=== PATIENT | male | born 2000 | race Caucasian/White ===

== ENCOUNTER 2022-12-04 21:08 | Inpatient (IN) ==
[2022-12-04 22:03] LABS: Basophils # (auto) 0.08 K/uL (0-0.2); Basophils % (auto) 1.1 %; Eosinophils # (auto) 0.16 K/uL (0-0.50); Eosinophils % (auto) 2.1 %; Hematocrit (blood only) 43.2 % (42.0-52.0); Hemoglobin 15.9 g/dl (14.0-18.0); Immature Granulocytes # (auto) 0.06 K/uL (0.01-0.20); Immature Granulocytes % (auto) 0.8 %; Lymphocytes # (auto) 1.75 K/uL (1.2-3.4); Lymphocytes % (auto) 23.5 %; Mean Corpuscular Hemoglobin 31.2 pg (25.0-34.0); Mean Corpuscular Hgb Conc 36.8 g/dL (32.0-36.0); Mean Corpuscular Volume 84.9 fL (80.0-100.0); Mean Platelet Volume 9.5 fL (9.4-12.4); Monocytes # (auto) 0.69 K/uL (0.11-0.59); Monocytes % (auto) 9.2 %; Neutrophils # (auto) 4.72 K/uL (1.40-6.50); Neutrophils % (auto) 63.3 %; Platelet Count 342 K/uL (130-400); RDW Coefficient of Variation 12.4 % (11.5-14.5); Red Blood Count 5.09 M/uL (4.70-6.10); White Blood Count 7.46 K/ul (4.8-10.8)
[2022-12-04 22:04] LABS: Appearance Urine Clear (Clear); Bilirubin Urine Negative (Negative); Blood Urine Negative (Negative); Color Urine Yellow; Glucose Urine UA Negative (Negative); Ketones Urine Negative (Negative); Leukocyte Esterase Urine Negative (Negative); Nitrite Urine Negative (Negative); Protein Urine Negative (Negative); Specific Gravity Urine 1.022 (1.000-1.030); Urobilinogen Urine Negative (Negative)
--- NOTE | 2022-12-04 22:10 | Emergency Department Note ---
History of Present Illness General Chief complaint: Mental Health Evaluation Stated complaint: LACERATION ON R ARM Time Seen by Provider: 12/04/22 21:50 Source: patient Mode of arrival: ambulatory Limitations: no limitations History of Present Illness This patient is a 22-year-old male who comes in after having suicidal thoughts. He has been seen at [facility] and called crisis a couple times over the last month he says. He said he just did not want to be alone in his apartment. He has been living by himself which has been stressful. He started cutting himself about a week ago and cut both arms. He has a larger laceration on the right proximal arm. His tetanus shot is up-to-date. He denies that he tried to hurt himself in any other way or took an overdose. He was started recently on Lexapro and was concerned about serotonin syndrome he is very restless. He says at school is not going well. he is not eating. he is not showering. Home Medications Medication Instructions Recorded Confirmed Type escitalopram oxalate 10 mg tablet 10 mg PO DAILY 12/04/22 12/04/22 History melatonin 3 mg tablet 0 mg PO HS PRN Sleep 12/04/22 12/04/22 History Allergies Allergy/AdvReac Type Severity Reaction Status Date / Time amoxicillin Allergy Intermediate Rash Verified 12/04/22 22:20 Past Med/Surg History Medical History Pilonidal cyst Social History Smoking Status: Never smoker Preferred Language: Hungarian Feels Safe at Home: Hesitant to Answer Gender Identity: Male Immunizations: Past medical historydiabetes. 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 He is from [place]. He does not smoke he drinks alcohol 2-3 drinks a night but has not had any alcohol for a week when he started Lexapro. He denies any history of withdrawing having seizures or shakiness after not drinking. Denies drug use or marijuana Review of Systems A total of 10 systems reviewed and were otherwise negative Physical Exam Vital Signs Vital Signs - 24 hr 12/04/22 21:14 12/04/22 21:09 Temperature 36.9 C Temperature Source Oral Pulse Rate 79 Respiratory Rate 16 Respiratory Effort / Characteristics Non-Labored Spontaneous Non-Labored Respiratory Depth Normal Normal Blood Pressure 132/86 Blood Pressure Mean 101 Blood Pressure Position Sitting Pulse Oximetry 97 Oxygen Delivery Method Room Air Sepsis Recent Fever Within 48 Hours No Sepsis New/Unexplained Change in Mental Status N/A Sepsis Action Taken by Nursing No Action Required General: Well developed well nourished young male who appears in no acute distress, breathing comfortably on room air. Normal speech HEENT: Normal cephalic atraumatic. Pupils are equal round and reactive to light. Sclera are anicteric extraocular movements are intact. Oropharynx is pink with moist mucous membranes. No swelling of the mouth lips or tongue. Neck: Supple with a midline trachea. No meningeal signs or stiffness, no JVD or bruits. No Stridor. Chest: Clear to auscultation bilaterally. No wheezes or rhonchi. No increased work of breathing. Heart: Regular rate and rhythm without murmurs or gallops. Abdomen: Soft nontender, nondistended without rebound guarding or rigidity. Extremities: No cyanosis clubbing or edema. No calf tenderness or assymetry Spine/Back. Non tender to palpation. No CVA tenderness Skin: Good turgor without rashes. He has multiple healing superficial cuts on his left arm they are mostly scars. In his right proximal arm he has a laceration which has a 4 mm gape but does not appear to be deep. No bleeding no damage to the underlying structures he is neurologically intact distally Neurologic exam: Cranial nerves two through 12 are intact. Motor and sensation are intact and symmetrical throughout. He has normal reflexes. he has no clonus. he has no tremor. he is not shaky Procedures Free Text Procedures Laceration repairplease refer to Cindy Winn PA-C note Course Administered Medications Discontinued Medications Lidocaine/Epinephrine (Lido/Epinephrine/Sod Bicarb 50 Ml Vial) 20 ml INFIL NOW ONE Stop: 12/04/22 23:24 Last Admin: 12/04/22 23:41 Dose: 20 ml Documented By: NEMO Medical Decision Making Differential Diagnosis Depression, suicidal ideations, anxiety, toxicologic, metabolic, laceration Medical Records Attestation: I reviewed the patient's medical records. Home Medications Current Medication List: was personally reviewed by me Laboratory Data Attestation: I reviewed the patient's lab results. 12/04/22 21:30 12/04/22 21:30 Lab Results 12/04/22 12/04/22 12/04/22 Range/Units 21:30 21:30 21:30 WBC 7.46 (4.8-10.8) K/ul RBC 5.09 (4.70-6.10) M/uL Hgb 15.9 (14.0-18.0) g/dl Hct 43.2 (42.0-52.0) % MCV 84.9 (80.0-100.0) fL MCH 31.2 (25.0-34.0) pg MCHC 36.8 H (32.0-36.0) g/dL RDW Std Deviation 38.0 (36.4-46.3) fL RDW Coeff of Rishi 12.4 (11.5-14.5) % Plt Count 342 (130-400) K/uL MPV 9.5 (9.4-12.4) fL Immature Gran % (Auto) 0.8 % Neut % (Auto) 63.3 % Lymph % (Auto) 23.5 % [place] % (Auto) 9.2 % Eos % (Auto) 2.1 % Baso % (Auto) 1.1 % Neut # (Auto) 4.72 (1.40-6.50) K/uL Lymph # (Auto) 1.75 (1.2-3.4) K/uL [place] # (Auto) 0.69 H (0.11-0.59) K/uL Eos # (Auto) 0.16 (0-0.50) K/uL Baso # (Auto) 0.08 (0-0.2) K/uL Immature Gran # (Auto) 0.06 (0.01-0.20) K/uL Sodium 139 (136-145) mmol/L Potassium 3.7 (3.5-5.1) mmol/L Chloride 104 (98-107) mmol/L Carbon Dioxide 25 (21-32) mmol/L Anion Gap 10 (3-11) BUN 17 (6-23) mg/dl Creatinine 0.97 (0.6-1.4) mg/dl Est Cr Clr Drug Dosing 123.7 ml/min Est GFR ( Amer) 127.9 ml/min Est GFR (Non-Af Amer) 110.4 ml/min BUN/Creatinine Ratio 17.5 (10-20) Glucose 92 (70-99(Fasting)) mg/dl Calcium 9.3 (8.6-10.3) mg/dl Total Bilirubin 0.8 (0.2-1.0) mg/dl AST 36 (13-39) U/L ALT 64 H (7-52) U/L Alkaline Phosphatase 62 (34-104) U/L Total Protein 7.6 (6.0-8.3) gm/dl Albumin 4.8 (3.4-5.0) gm/dl Globulin 2.8 (2.5-4.0) gm/dl Albumin/Globulin Ratio 1.7 (0.9-2) TSH 1.745 (0.300-4.500) uIu/ml Urine Color Urine Appearance (Clear) Urine pH (4.5-7.5) Ur Specific [place] (1.000-1.030) Urine Protein (Negative) Urine Glucose (UA) (Negative) Urine Ketones (Negative) Urine Blood (Negative) Urine Nitrite (Negative) Urine Bilirubin (Negative) Urine Urobilinogen (Negative) Ur Leukocyte Esterase (Negative) Salicylates (3.0-30) mg/dl Urine Opiates Screen (Neg) Ur Methadone, Qual (Neg) Acetaminophen (10-30) ug/ml Urine Barbiturates (Neg) Ur Phencyclidine (PCP) (Neg) U Amphetamin/Meth Scrn (Neg) MDMA (Ecstasy) Screen (Neg) U Benzodiazepines Scrn (Neg) Ur Cocaine Metabolite (Neg) U Marijuana (THC) Screen (Neg) Ethyl Alcohol mg/dL (<10.0) mg/dl SARS-CoV-2, RNA, NAAT (NEGATIVE) 12/04/22 12/04/22 12/04/22 Range/Units 21:30 21:30 21:45 WBC (4.8-10.8) K/ul RBC (4.70-6.10) M/uL Hgb (14.0-18.0) g/dl Hct (42.0-52.0) % MCV (80.0-100.0) fL MCH (25.0-34.0) pg MCHC (32.0-36.0) g/dL RDW Std Deviation (36.4-46.3) fL RDW Coeff of Rishi (11.5-14.5) % Plt Count (130-400) K/uL MPV (9.4-12.4) fL Immature Gran % (Auto) % Neut % (Auto) % Lymph % (Auto) % [place] % (Auto) % Eos % (Auto) % Baso % (Auto) % Neut # (Auto) (1.40-6.50) K/uL Lymph # (Auto) (1.2-3.4) K/uL [place] # (Auto) (0.11-0.59) K/uL Eos # (Auto) (0-0.50) K/uL Baso # (Auto) (0-0.2) K/uL Immature Gran # (Auto) (0.01-0.20) K/uL Sodium (136-145) mmol/L Potassium (3.5-5.1) mmol/L Chloride (98-107) mmol/L Carbon Dioxide (21-32) mmol/L Anion Gap (3-11) BUN (6-23) mg/dl Creatinine (0.6-1.4) mg/dl Est Cr Clr Drug Dosing ml/min Est GFR ( Amer) ml/min Est GFR (Non-Af Amer) ml/min BUN/Creatinine Ratio (10-20) Glucose (70-99(Fasting)) mg/dl Calcium (8.6-10.3) mg/dl Total Bilirubin (0.2-1.0) mg/dl AST (13-39) U/L ALT (7-52) U/L Alkaline Phosphatase (34-104) U/L Total Protein (6.0-8.3) gm/dl Albumin (3.4-5.0) gm/dl Globulin (2.5-4.0) gm/dl Albumin/Globulin Ratio (0.9-2) TSH (0.300-4.500) uIu/ml Urine Color Urine Appearance (Clear) Urine pH (4.5-7.5) Ur Specific [place] (1.000-1.030) Urine Protein (Negative) Urine Glucose (UA) (Negative) Urine Ketones (Negative) Urine Blood (Negative) Urine Nitrite (Negative) Urine Bilirubin (Negative) Urine Urobilinogen (Negative) Ur Leukocyte Esterase (Negative) Salicylates < 3.0 L (3.0-30) mg/dl Urine Opiates Screen (Neg) Ur Methadone, Qual (Neg) Acetaminophen < 3 L (10-30) ug/ml Urine Barbiturates (Neg) Ur Phencyclidine (PCP) (Neg) U Amphetamin/Meth Scrn (Neg) MDMA (Ecstasy) Screen (Neg) U Benzodiazepines Scrn (Neg) Ur Cocaine Metabolite (Neg) U Marijuana (THC) Screen (Neg) Ethyl Alcohol mg/dL < 10.0 (<10.0) mg/dl SARS-CoV-2, RNA, NAAT NEGATIVE (NEGATIVE) 12/04/22 12/04/22 Range/Units Unknown Unknown WBC (4.8-10.8) K/ul RBC (4.70-6.10) M/uL Hgb (14.0-18.0) g/dl Hct (42.0-52.0) % MCV (80.0-100.0) fL MCH (25.0-34.0) pg MCHC (32.0-36.0) g/dL RDW Std Deviation (36.4-46.3) fL RDW Coeff of Rishi (11.5-14.5) % Plt Count (130-400) K/uL MPV (9.4-12.4) fL Immature Gran % (Auto) % Neut % (Auto) % Lymph % (Auto) % [place] % (Auto) % Eos % (Auto) % Baso % (Auto) % Neut # (Auto) (1.40-6.50) K/uL Lymph # (Auto) (1.2-3.4) K/uL [place] # (Auto) (0.11-0.59) K/uL Eos # (Auto) (0-0.50) K/uL Baso # (Auto) (0-0.2) K/uL Immature Gran # (Auto) (0.01-0.20) K/uL Sodium (136-145) mmol/L Potassium (3.5-5.1) mmol/L Chloride (98-107) mmol/L Carbon Dioxide (21-32) mmol/L Anion Gap (3-11) BUN (6-23) mg/dl Creatinine (0.6-1.4) mg/dl Est Cr Clr Drug Dosing ml/min Est GFR ( Amer) ml/min Est GFR (Non-Af Amer) ml/min BUN/Creatinine Ratio (10-20) Glucose (70-99(Fasting)) mg/dl Calcium (8.6-10.3) mg/dl Total Bilirubin (0.2-1.0) mg/dl AST (13-39) U/L ALT (7-52) U/L Alkaline Phosphatase (34-104) U/L Total Protein (6.0-8.3) gm/dl Albumin (3.4-5.0) gm/dl Globulin (2.5-4.0) gm/dl Albumin/Globulin Ratio (0.9-2) TSH (0.300-4.500) uIu/ml Urine Color Yellow Urine Appearance Clear (Clear) Urine pH 7.0 (4.5-7.5) Ur Specific [place] 1.022 (1.000-1.030) Urine Protein Negative (Negative) Urine Glucose (UA) Negative (Negative) Urine Ketones Negative (Negative) Urine Blood Negative (Negative) Urine Nitrite Negative (Negative) Urine Bilirubin Negative (Negative) Urine Urobilinogen Negative (Negative) Ur Leukocyte Esterase Negative (Negative) Salicylates (3.0-30) mg/dl Urine Opiates Screen Neg (Neg) Ur Methadone, Qual Neg (Neg) Acetaminophen (10-30) ug/ml Urine Barbiturates Neg (Neg) Ur Phencyclidine (PCP) Neg (Neg) U Amphetamin/Meth Scrn Neg (Neg) MDMA (Ecstasy) Screen Neg (Neg) U Benzodiazepines Scrn Neg (Neg) Ur Cocaine Metabolite Neg (Neg) U Marijuana (THC) Screen Neg (Neg) Ethyl Alcohol mg/dL (<10.0) mg/dl SARS-CoV-2, RNA, NAAT (NEGATIVE) MDM Narrative This patient comes in as described above he has a self-inflicted laceration to his right arm. He had suicidal ideations. He tells me he did have razor blades next to a bathtub but he stopped and did not try to hurt himself otherwise. He has been more depressed lately. Multiple testing was obtained for medical clearance. His tetanus shot is up-to-date. He has no fever white count to suggest infection. He has no significant electrolyte or metabolic abnormality. His labs were unremarkable and he was medically cleared. Is nothing to suggest toxicologic metabolic or infectious etiology for his symptoms. His COVID test was negative. I did talk to him about his laceration. I did have my PA and he [place] look at it for possible closure from a cosmetic aspect. The patient was about further evaluated by our psychiatric case aide who I talked to at length and discussion about this patient. [facility]. is going to evaluate the patient for possible admission. They did evaluate him and again made him voluntarily Impression & Plan Depression, Suicidal ideation, Laceration, Up to date with diphtheria-tetanus vaccination, Lab test negative for COVID-19 virus Discharge Plan Visit Data Chief Complaint: Mental Health Evaluation Stated Complaint: LACERATION ON R ARM ED Provider: Christopher Santos Discharge Problem: Depression, Suicidal ideation, Laceration, Up to date with diphtheria-tetanus vaccination, Lab test negative for COVID-19 virus Forms Stand Alone Forms: My [facility], Suicide Prevention Resources Prescriptions Prescriptions: No Action melatonin 3 mg Tablet 0 mg PO HS PRN (Reason: Sleep) Rx Instructions: PT UNSURE OF STRENGTH escitalopram oxalate 10 mg tablet 10 mg PO DAILY Referrals Referrals: PCP,NO [Physician] - Depression Qualifiers: Depression Type: unspecified Qualified Code(s): F32.A - Depression, unspecified
[2022-12-04 22:21] LABS: Albumin Globulin Ratio 1.7 (0.9-2); Albumin Level 4.8 gm/dl (3.4-5.0); BUN Creatinine Ratio 17.5 (10-20); Bilirubin,Total 0.8 mg/dl (0.2-1.0); Calcium 9.3 mg/dl (8.6-10.3); Creatinine Clr Calc Pharmacy 123.7 ml/min; Est GFR (African American) 127.9 ml/min; Est GFR (Non-African American) 110.4 ml/min; Globulin 2.8 gm/dl (2.5-4.0); Potassium 3.7 mmol/L (3.5-5.1); Total Protein 7.6 gm/dl (6.0-8.3)
[2022-12-04 22:32] LABS: Acetaminophen < 3 ug/ml (10-30); Salicylate < 3.0 mg/dl (3.0-30)
[2022-12-04 22:45] LABS: Amphetamines+Metham, Urine Neg (Neg); Barbiturates, Urine Neg (Neg); Benzodiazepine, Urine Neg (Neg); Cocaine, Urine Neg (Neg); MDMA (Ecstacy), Urine Neg (Neg); Methadone, Urine Neg (Neg); Opiate, Urine Neg (Neg); Phencyclidine, Urine Neg (Neg)
[2022-12-04] MEDS ORDERED: LIDO/EPINEPHRINE/SOD BICARB 50 ML VIAL INFIL ONE (23:23)
--- NOTE | 2022-12-04 23:25 | Emergency Department Note ---
ED Visit Note EMERGENCY DEPARTMENT PROCEDURE NOTE: I was asked by Dr. Santos to repair the right upper arm wound of this 22 year old male patient. Please refer to their dictation for the complete history, physical exam, and ED course. The patient has a 6 cm self-inflicted partial- thickness laceration of the left upper deltoid region. EMERGENCY DEPARTMENT COURSE: The wound was prepped with Betadine and draped with sterile towels. The wound was anesthetized with 1% buffered lidocaine with epinephrine. The 6 cm laceration was irrigated copiously using normal saline solution and direct pressure irrigation. The wound was repaired using a combination of simple and [id number] [id number] nylon sutures. A total of 5 sutures were placed. Bacitracin and a light dressing were applied. Patient tolerated the procedure well.
[2022-12-05] MEDS ORDERED: hydrOXYzine HCl 25 MG TAB PO PRN ×2 (02:34)
[2022-12-05] MEDS ORDERED: ACETAMINOPHEN 325 MG TAB PO PRN (02:34)
[2022-12-05] MEDS ORDERED: BISMUTH SUBSALICYLATE LIQD 236 ML PO PRN (02:34)
[2022-12-05] MEDS ORDERED: MAGNESIUM HYDROXIDE SUSP 30 ML UDC PO PRN (02:34)
[2022-12-05] MEDS ORDERED: ALUMINUM/MAGNESIUM SUSP 30 ML UDC PO PRN (02:34)
[2022-12-05] MEDS ORDERED: SODIUM CHLORIDE 0.65% NA SOLN 45 ML (OCEAN) PRN (02:34)
[2022-12-05] MEDS ORDERED: MELATONIN 3 MG TAB PO PRN (07:55)
[2022-12-05] MEDS ORDERED: NICOTINE POLACRILEX 2 MG GUM MT PRN (10:35)
--- NOTE | 2022-12-05 14:18 | History & Physical ---
Date of Service December 05, 2022 Impression / Recommendations Impression 22 yo male with no formal psych history presents with 3 month history of worsening depressive symptoms with escalation in SI and cutting since starting Lexapro 5 mg. (1) Depression: Depression Type: unspecified Qualified Code(s): F32.A - Depression, unspecified (2) Laceration: Plan The patient was admitted to the [facility] ([facility] mental [facility] unit) on q15 min checks (behavioral with suicide precautions) for safety. The patient will participate in group, recreational, and milieu therapies and will be offered additional individual and family sessions as clinically appropriate. d/c Lexapro. Risks/benefits/alternatives reviewed re: antidepressants for the treatment of depression, discussion included but was not limited to FDA warnings re: suicidality in adolescents and young adults. Will discuss options in more detail as subjective restlessness resolves. Inventory Assets Strengths: functions independently at baseline, will have family support for summer, works remotely Needs: improve coping, improve insight Suicide Risk Level Suicide Risk Level: High-Moderate (q15 min suicide checks) Risk Factors Assessment Male: Yes : Yes Do You Have Access To A Gun?: No (neither here nor home) Previous Attempt: No Previous Psychiatric Hospitalization: No Protective Factors Assessment Employed: Yes Supportive Family: Yes (brother) Psychiatric History Identifying Data CRISTINA BLAIR is a 22-year-old , [employer] student and was admitted on 12/05/22 00:14 on a 201 voluntary commitment for SI with self-inflicted laceration. Chief Complaint "Lexapro made me restless." History of Present Illness Patient reports onset of depressive symptoms in August. He stopped going to class and responding to texts from other people. He couldn't concentrate as well and lost motivation. He "waited too long I guess" to seek treatment as now in danger of failing some classes in [employer]. He lives alone so there is no one around to encourage him to go out or care for self but was quick to add that that does not imply that he doesn't have friends. He was started on Lexapro 5 mg 1 week ago and has felt generally worse--tapping his leg/foot up and down, not sleeping or eating as well. Although he had made some superficial cuts last week, yesterday he cut his right arm requiring 5 sutures (removal in 2 weeks). He does plan to go to the [facility] for the summer but is ambivalent about sharing the news of his hospitalization with his parents as doesn't want them to feel responsible but "I also want to stop lying." By lying he means referring to his mood as good when it is not. Past Psychiatric History Current Psychiatric Diagnosis: MDD Outpatient Services: [place] Previous Psych Admissions: none Do You Have Access To A Gun?: No (neither here nor home) History of Previous Suicide Attempt: No Past Medication Trials: none Allergies Allergy/AdvReac Type Severity Reaction Status Date / Time amoxicillin Allergy Intermediate Rash Verified 12/04/22 22:20 Home Medications Medication Instructions Recorded Confirmed Type escitalopram oxalate 10 mg tablet 10 mg PO DAILY 12/04/22 12/04/22 History melatonin 3 mg tablet 0 mg PO HS PRN Sleep 12/04/22 12/04/22 History Family History Family History of: Doesn't Know Family Mental Health History Comment: Paternal Grandfather - alcoholism Alcohol History Hx of Alcohol Use Over the Past 12 Months: Yes (until a week ago, a couple of beers a night) AUDIT Total Score: 3 Smoking Use Have You Smoked or Used Tobacco Products in the Last 30 Days: Yes tobacco type: e-cigarettes Substance History Hx of Prescription Med Misuse Over the Past 12 Months: No Hx of Over the Counter Med Misuse Over the Past 12 Months: No Hx of Inhalent Misuse Over the Past 12 Months: No Hx of Organic Substance Use Over the Past 12 Months: No Hx of Illegal Substances/Street Drug Use Over Past 12 Months: No Problems as a Result of Past Substance Use: None Identified Personal History Living Arrangements: Apartment Living Arrangements Comments: Will be returning to [place] after finals Highest Grade Completed: College Highest Grade Completed Comment: [employer] majoring in [employer] science, states that he is not doing well throughout the whole semester and is unsure of what he plans to do in regard to classes Marital Status: Single Number Of Children: 0 Beliefs That Will Affect Care: None Current Legal Problems: No Hx Traumatic Life Events: No Patient History Medical History Pilonidal cyst Social History Preferred Language: Slovak Communication Ability: Effective Classified Copy Control Clerk Required: No Beliefs That Will Affect Care: None Feels Safe at Home: Yes and Hesitant to Answer Gender Identity: Male Assistive Devices: Glasses Review of Systems Review of Systems: All systems reviewed & are unremarkable except as noted in HPI & below Physical Exam Psychiatric: Orientation: alert and oriented x 3 Apperance: appropriately dressed and appropriately groomed Eye Contact: good eye contact Motor Behavior: no abnormal motor movements Speech: normal rate/rhythm/volume of speech Affect: + depressed affect Mood: + depressed mood Thought Process: + concrete thought process Thought Content: reality based without delusions Suicidal Thoughts: denies suicidal intent (on unit); + reports suicidal thoughts and + reports suicidal plan Homicidal Thoughts: denies homicidal thoughts Hallucinations: no auditory hallucinations and no visual hallucinations Cognition: attention grossly intact and language grossly intact Estimated Intelligence: consistent with education level Insight: + limited insight Judgment: + limited judgement Vital Signs (Past 24 Hours): Last Vital Signs Temp 36.6 C 12/05/22 06:00 Pulse 76 12/05/22 06:42 Resp 16 12/05/22 06:00 BP 129/82 12/05/22 06:42 Pulse Ox 99 12/05/22 01:41 O2 Del Method Room Air 12/05/22 01:41 Exam Statement: A physical exam was performed in the ED by Dr. Santos for the purposes of medical clearance. I accept that physical as correct and adequate for the purposes of the inpatient physical exam. Results & Data ([facility]) Laboratory Results Laboratory Results - last 24 hr 12/04/22 12/04/22 12/04/22 21:30 21:30 21:30 WBC 7.46 RBC 5.09 Hgb 15.9 Hct 43.2 MCV 84.9 MCH 31.2 MCHC 36.8 H RDW Std Deviation 38.0 RDW Coeff of Rishi 12.4 Plt Count 342 MPV 9.5 Immature Gran % (Auto) 0.8 Neut % (Auto) 63.3 Lymph % (Auto) 23.5 [place] % (Auto) 9.2 Eos % (Auto) 2.1 Baso % (Auto) 1.1 Neut # (Auto) 4.72 Lymph # (Auto) 1.75 [place] # (Auto) 0.69 H Eos # (Auto) 0.16 Baso # (Auto) 0.08 Immature Gran # (Auto) 0.06 Sodium 139 Potassium 3.7 Chloride 104 Carbon Dioxide 25 Anion Gap 10 BUN 17 Creatinine 0.97 Est Cr Clr Drug Dosing 123.7 Est GFR ( Amer) 127.9 Est GFR (Non-Af Amer) 110.4 BUN/Creatinine Ratio 17.5 Glucose 92 Calcium 9.3 Total Bilirubin 0.8 AST 36 ALT 64 H Alkaline Phosphatase 62 Total Protein 7.6 Albumin 4.8 Globulin 2.8 Albumin/Globulin Ratio 1.7 TSH 1.745 Urine Color Urine Appearance Urine pH Ur Specific [place] Urine Protein Urine Glucose (UA) Urine Ketones Urine Blood Urine Nitrite Urine Bilirubin Urine Urobilinogen Ur Leukocyte Esterase Salicylates Urine Opiates Screen Ur Methadone, Qual Acetaminophen Urine Barbiturates Ur Phencyclidine (PCP) U Amphetamin/Meth Scrn MDMA (Ecstasy) Screen U Benzodiazepines Scrn Ur Cocaine Metabolite U Marijuana (THC) Screen Ethyl Alcohol mg/dL SARS-CoV-2, RNA, NAAT 12/04/22 12/04/22 12/04/22 21:30 21:30 21:45 WBC RBC Hgb Hct MCV MCH MCHC RDW Std Deviation RDW Coeff of Rishi Plt Count MPV Immature Gran % (Auto) Neut % (Auto) Lymph % (Auto) [place] % (Auto) Eos % (Auto) Baso % (Auto) Neut # (Auto) Lymph # (Auto) [place] # (Auto) Eos # (Auto) Baso # (Auto) Immature Gran # (Auto) Sodium Potassium Chloride Carbon Dioxide Anion Gap BUN Creatinine Est Cr Clr Drug Dosing Est GFR ( Amer) Est GFR (Non-Af Amer) BUN/Creatinine Ratio Glucose Calcium Total Bilirubin AST ALT Alkaline Phosphatase Total Protein Albumin Globulin Albumin/Globulin Ratio TSH Urine Color Urine Appearance Urine pH Ur Specific [place] Urine Protein Urine Glucose (UA) Urine Ketones Urine Blood Urine Nitrite Urine Bilirubin Urine Urobilinogen Ur Leukocyte Esterase Salicylates < 3.0 L Urine Opiates Screen Ur Methadone, Qual Acetaminophen < 3 L Urine Barbiturates Ur Phencyclidine (PCP) U Amphetamin/Meth Scrn MDMA (Ecstasy) Screen U Benzodiazepines Scrn Ur Cocaine Metabolite U Marijuana (THC) Screen Ethyl Alcohol mg/dL < 10.0 SARS-CoV-2, RNA, NAAT NEGATIVE 12/04/22 12/04/22 Unknown Unknown WBC RBC Hgb Hct MCV MCH MCHC RDW Std Deviation RDW Coeff of Rishi Plt Count MPV Immature Gran % (Auto) Neut % (Auto) Lymph % (Auto) [place] % (Auto) Eos % (Auto) Baso % (Auto) Neut # (Auto) Lymph # (Auto) [place] # (Auto) Eos # (Auto) Baso # (Auto) Immature Gran # (Auto) Sodium Potassium Chloride Carbon Dioxide Anion Gap BUN Creatinine Est Cr Clr Drug Dosing Est GFR ( Amer) Est GFR (Non-Af Amer) BUN/Creatinine Ratio Glucose Calcium Total Bilirubin AST ALT Alkaline Phosphatase Total Protein Albumin Globulin Albumin/Globulin Ratio TSH Urine Color Yellow Urine Appearance Clear Urine pH 7.0 Ur Specific [place] 1.022 Urine Protein Negative Urine Glucose (UA) Negative Urine Ketones Negative Urine Blood Negative Urine Nitrite Negative Urine Bilirubin Negative Urine Urobilinogen Negative Ur Leukocyte Esterase Negative Salicylates Urine Opiates Screen Neg Ur Methadone, Qual Neg Acetaminophen Urine Barbiturates Neg Ur Phencyclidine (PCP) Neg U Amphetamin/Meth Scrn Neg MDMA (Ecstasy) Screen Neg U Benzodiazepines Scrn Neg Ur Cocaine Metabolite Neg U Marijuana (THC) Screen Neg Ethyl Alcohol mg/dL SARS-CoV-2, RNA, NAAT Current Inpatient Medications Current Inpatient Medications: Current Inpatient Medications Acetaminophen (Acetaminophen 325 Mg Tab) 650 mg PO Q4H PRN PRN Reason: Headache or Minor Fever Stop: 01/04/23 02:33 Al Hydrox/Mg Hydrox/Simethicone (Aluminum/Magnesium Susp 30 Ml Udc) 30 ml PO Q4H PRN PRN Reason: GI Upset Stop: 01/04/23 02:33 Bismuth Subsalicylate (Bismuth Subsalicylate Liqd 236 Ml) 15 ml PO PRN PRN PRN Reason: Loose Stool Stop: 01/04/23 02:33 Hydroxyzine HCl (Hydroxyzine Hcl 25 Mg Tab) 50 mg PO HSZ PRN PRN Reason: Insomnia Stop: 01/04/23 02:33 Hydroxyzine HCl (Hydroxyzine Hcl 25 Mg Tab) 25 mg PO Q4H PRN PRN Reason: Anxiety Stop: 01/04/23 02:33 Magnesium Hydroxide (Magnesium Hydroxide Susp 30 Ml Udc) 30 ml PO DAILY PRN PRN Reason: Constipation Stop: 01/04/23 02:33 Melatonin (Melatonin 3 Mg Tab) 3 mg PO HS PRN PRN Reason: Sleep Stop: 01/04/23 07:54 Nicotine Polacrilex (Nicotine Polacrilex 2 Mg Gum) 1 piece MT PRN PRN PRN Reason: Undecided Stop: 01/04/23 10:34 Sodium Chloride (Sodium Chloride 0.65% Na Soln 45 Ml ([place])) 1 - 2 sprays NA PRN PRN PRN Reason: Nasal Dryness/Congestion Stop: 01/04/23 02:33
--- NOTE | 2022-12-06 08:47 | Psychiatric Progress Note ---
Date of Service December 06, 2022 Impression / Recommendations Impression 22 yo male with no formal psych history presents with 3 month history of worsening depressive symptoms with escalation in SI and cutting since starting Lexapro 5 mg. Diagnostically seems most consistent with major depressive episode. He is deemed to need psychiatric hospitalization for diagnostic clarification, safety and stabilization, medication management and development of further coping skills. 12/06/2022: Difficulty sleeping and feeling of depersonalization, unclear if this is due to major depressive versus trauma-based or otherwise driven. Given poor response to recent low dose SSRI trial will start trazodone to begin with focus on improving sleep. Discussed medication treatment options in detail. Discussed risks, benefits and alternatives. Patient would like to start and consented to trazodone for insomnia/depression.Reviewed side effects including but not limited to: sedation, priapism, increased appetite, and counseled on black box warning of potential for emergence of or increased SI and need to let staff know should this occur or should they feel unsafe. Also discussed importance of seeking emergency care following discharge if this side effect occurs in the future. (1) Depression: (2) Laceration: Plan 12/06/2022: Start trazodone 50mg HS 12/05/2022: The patient was admitted to the [facility] ([facility] mental health unit) on q15 min checks (behavioral with suicide precautions) for safety. The patient will participate in group, recreational, and milieu therapies and will be offered additional individual and family sessions as clinically appropriate. d/c Lexapro. Risks/benefits/alternatives reviewed re: antidepressants for the treatment of depression, discussion included but was not limited to FDA warnings re: suicidality in adolescents and young adults. Will discuss options in more detail as subjective restlessness resolves. Inventory Assets Strengths: functions independently at baseline, will have family support for summer, works remotely Needs: improve coping, improve insight Suicide Risk Level Suicide Risk Level: High-Moderate (q15 min suicide checks) (SI and cutting prior to admission with ongoing severe depression and intermittent SI but feels safe in the hospital and feels comfortable letting nurses know if he feels unable to remain safe or requires additional support) Risk Factors Assessment Male: Yes : Yes Do You Have Access To A Gun?: No (neither here nor home) Previous Attempt: No Previous Psychiatric Hospitalization: No Protective Factors Assessment Employed: Yes Supportive Family: Yes (brother) Interval History Identifying Information CRISTINA BLAIR is a 22-year-old M, [employer] student and was admitted on 12/05/22 00:14 on a 201 voluntary commitment for SI with self-inflicted laceration. Chief Complaint "Better than yesterday but not the best". Review of Systems Sleep Information Total Hours of Sleep: 6.5 Sleep Comments: Meal Information Percent Meal Consumed - Breakfast: 100 Percent Meal Consumed - Lunch: 95 Percent Meal Consumed - Dinner: 100 Subjective Subjective Patient was seen & assessed and interval progress reviewed with treatment team nursing and social work. Attending groups but withdrawn and flat. States poor sleep with multiple awakenings. Experiences sense of "depersonalization" especially during nighttime awakenings which is very bothersome to him. cannot describe sense further but agrees it feels like being disconnected with his body. Denies SI but notes it is early in the day so hard for him to tell so far. Would like to try a medication to help with sleep. Physical Exam Psychiatric Orientation: alert and oriented x 3 Apperance: appropriately dressed and appropriately groomed Eye Contact: good eye contact Motor Behavior: no abnormal motor movements Speech: normal rate/rhythm/volume of speech Affect: + depressed affect and + constricted affect Mood: + depressed mood Thought Process: + concrete thought process Thought Content: reality based without delusions Suicidal Thoughts: denies suicidal plan and denies suicidal intent; + reports suicidal thoughts (intermittent, none so far today) Homicidal Thoughts: denies homicidal thoughts Hallucinations: no auditory hallucinations and no visual hallucinations Cognition: attention grossly intact and language grossly intact Estimated Intelligence: consistent with education level Insight: + limited insight Judgment: + limited judgement Vital Signs (Past 24 Hours) Last Vital Signs Temp 37.0 C 12/06/22 06:00 Pulse 73 12/06/22 06:00 Resp 18 12/06/22 06:00 BP 126/78 12/06/22 06:37 Pulse Ox 97 12/06/22 06:00 O2 Del Method Room Air 12/06/22 06:00 Results & Data ([facility]) Current Inpatient Medications Current Inpatient Medications: Current Inpatient Medications Acetaminophen (Acetaminophen 325 Mg Tab) 650 mg PO Q4H PRN PRN Reason: Headache or Minor Fever Stop: 01/04/23 02:33 Al Hydrox/Mg Hydrox/Simethicone (Aluminum/Magnesium Susp 30 Ml Udc) 30 ml PO Q4H PRN PRN Reason: GI Upset Stop: 01/04/23 02:33 Bismuth Subsalicylate (Bismuth Subsalicylate Liqd 236 Ml) 15 ml PO PRN PRN PRN Reason: Loose Stool Stop: 01/04/23 02:33 Hydroxyzine HCl (Hydroxyzine Hcl 25 Mg Tab) 50 mg PO HSZ PRN PRN Reason: Insomnia Stop: 01/04/23 02:33 Hydroxyzine HCl (Hydroxyzine Hcl 25 Mg Tab) 25 mg PO Q4H PRN PRN Reason: Anxiety Stop: 01/04/23 02:33 Magnesium Hydroxide (Magnesium Hydroxide Susp 30 Ml Udc) 30 ml PO DAILY PRN PRN Reason: Constipation Stop: 01/04/23 02:33 Melatonin (Melatonin 3 Mg Tab) 3 mg PO HS PRN PRN Reason: Sleep Stop: 01/04/23 07:54 Nicotine Polacrilex (Nicotine Polacrilex 2 Mg Gum) 1 piece MT PRN PRN PRN Reason: Undecided Stop: 01/04/23 10:34 Sodium Chloride (Sodium Chloride 0.65% Na Soln 45 Ml ([place])) 1 - 2 sprays NA PRN PRN PRN Reason: Nasal Dryness/Congestion Stop: 01/04/23 02:33 Mental Health & Subst Abuse Tx Therapist Name of Therapist: [place] intake next week Date of Therapist Appointment: na Post Adoption Coordinator Name of Post Adoption Coordinator: NA Post Discharge Appointments Primary Care Physician Name Of Family Doctor/PCP: CLAUDE (1) Depression Depression Type: unspecified Qualified Code(s): F32.A - Depression, unspecified
[2022-12-06] MEDS: traZODone HCL 50 MG TAB PO SCH (20:46)
--- NOTE | 2022-12-07 09:57 | Psychiatric Progress Note ---
Date of Service December 07, 2022 Impression / Recommendations Impression 22 yo male with no formal psych history presents with 3 month history of worsening depressive symptoms with escalation in SI and cutting since starting Lexapro 5 mg. Diagnostically seems most consistent with major depressive episode. He is deemed to need psychiatric hospitalization for diagnostic clarification, safety and stabilization, medication management and development of further coping skills. 12/07/2022: Ongoing depression but less depersonalization with improved sleep last night. Tolerating trazodone well so far but will monitor daytime grogginess. He declines additional antidepressant at this time. (1) Depression: (2) Laceration: Plan 12/07/2022: Continue current medication and tx plan. 12/06/2022: Start trazodone 50mg HS 12/05/2022: The patient was admitted to the [facility] ([facility] health unit) on q15 min checks (behavioral with suicide precautions) for safety. The patient will participate in group, recreational, and milieu therapies and will be offered additional individual and family sessions as clinically appropriate. d/c Lexapro. Risks/benefits/alternatives reviewed re: antidepressants for the treatment of depression, discussion included but was not limited to FDA warnings re: suicidality in adolescents and young adults. Will discuss options in more detail as subjective restlessness resolves. Inventory Assets Strengths: functions independently at baseline, will have family support for summer, works remotely Needs: improve coping, improve insight Suicide Risk Level Suicide Risk Level: High-Moderate (q15 min suicide checks) (SI and cutting prior to admission with ongoing severe depression and intermittent SI but feels safe in the hospital and feels comfortable letting nurses know if he feels unable to remain safe or requires additional support) Risk Factors Assessment Male: Yes : Yes Do You Have Access To A Gun?: No (neither here nor home) Previous Attempt: No Previous Psychiatric Hospitalization: No Protective Factors Assessment Employed: Yes Supportive Family: Yes (brother) Interval History Identifying Information CRISTINA BLAIR is a 22-year-old , [employer] student and was admitted on 12/05/22 00:14 on a 201 voluntary commitment for SI with self-inflicted laceration. Chief Complaint "I'm a little groggy". Review of Systems Sleep Information Total Hours of Sleep: 8.5 Meal Information Percent Meal Consumed - Breakfast: 100 Percent Meal Consumed - Lunch: 100 Percent Meal Consumed - Dinner: 100 Subjective Subjective Patient was seen & assessed and interval progress reviewed with treatment team nursing and social work. Attending groups. Attending to self-care via showering. Slept better last night with trazodone but with some grogginess this morning. he wants to continue with current dose. Denies SI today. Prefers to see how therapy and trazodone go before starting an additional SSRI or antidepressant medication given poor response to lexapro which he feels lead to restlessness and worsening of concentration. Physical Exam Psychiatric Orientation: alert and oriented x 3 Apperance: appropriately dressed and appropriately groomed Eye Contact: good eye contact Motor Behavior: no abnormal motor movements Speech: normal rate/rhythm/volume of speech Affect: + constricted affect Mood: + depressed mood Thought Process: + concrete thought process Thought Content: reality based without delusions Suicidal Thoughts: denies suicidal thoughts, denies suicidal plan and denies suicidal intent Homicidal Thoughts: denies homicidal thoughts Hallucinations: no auditory hallucinations and no visual hallucinations Cognition: attention grossly intact and language grossly intact Estimated Intelligence: consistent with education level Insight: + limited insight Judgment: + limited judgement Vital Signs (Past 24 Hours) Last Vital Signs Temp 36.5 C 12/07/22 06:00 Pulse 82 12/07/22 06:00 Resp 18 12/07/22 06:00 BP 102/65 12/07/22 06:43 Pulse Ox 99 12/07/22 06:00 O2 Del Method Room Air 12/07/22 06:00 Results & Data ([facility]) Current Inpatient Medications Current Inpatient Medications: Current Inpatient Medications Acetaminophen (Acetaminophen 325 Mg Tab) 650 mg PO Q4H PRN PRN Reason: Headache or Minor Fever Stop: 01/04/23 02:33 Al Hydrox/Mg Hydrox/Simethicone (Aluminum/Magnesium Susp 30 Ml Udc) 30 ml PO Q4H PRN PRN Reason: GI Upset Stop: 01/04/23 02:33 Bismuth Subsalicylate (Bismuth Subsalicylate Liqd 236 Ml) 15 ml PO PRN PRN PRN Reason: Loose Stool Stop: 01/04/23 02:33 Hydroxyzine HCl (Hydroxyzine Hcl 25 Mg Tab) 50 mg PO HSZ PRN PRN Reason: Insomnia Stop: 01/04/23 02:33 Hydroxyzine HCl (Hydroxyzine Hcl 25 Mg Tab) 25 mg PO Q4H PRN PRN Reason: Anxiety Stop: 01/04/23 02:33 Magnesium Hydroxide (Magnesium Hydroxide Susp 30 Ml Udc) 30 ml PO DAILY PRN PRN Reason: Constipation Stop: 01/04/23 02:33 Melatonin (Melatonin 3 Mg Tab) 3 mg PO HS PRN PRN Reason: Sleep Stop: 01/04/23 07:54 Nicotine Polacrilex (Nicotine Polacrilex 2 Mg Gum) 1 piece MT PRN PRN PRN Reason: Undecided Stop: 01/04/23 10:34 Sodium Chloride (Sodium Chloride 0.65% Na Soln 45 Ml ([place])) 1 - 2 sprays NA PRN PRN PRN Reason: Nasal Dryness/Congestion Stop: 01/04/23 02:33 Trazodone HCl (Trazodone Hcl 50 Mg Tab) 50 mg PO HS NAI Stop: 01/05/23 21:59 Last Admin: 12/06/22 20:46 Dose: 50 mg Mental Health & Subst Abuse Tx Therapist Name of Therapist: [place] intake next week Date of Therapist Appointment: na Printed Circuit Board Drafter Name of Printed Circuit Board Drafter: NA Post Discharge Appointments Primary Care Physician Name Of Family Doctor/PCP: CLAUDE (1) Depression Depression Type: unspecified Qualified Code(s): F32.A - Depression, unspecified
[2022-12-07] MEDS: traZODone HCL 50 MG TAB PO SCH (21:18)
--- NOTE | 2022-12-08 08:54 | Psychiatric Progress Note ---
Date of Service December 08, 2022 Impression / Recommendations Impression 22 yo male with no formal psych history presents with 3 month history of worsening depressive symptoms with escalation in SI and cutting since starting Lexapro 5 mg. Diagnostically seems most consistent with major depressive episode. He is deemed to need psychiatric hospitalization for diagnostic clarification, safety and stabilization, medication management and development of further coping skills. 12/08/2022: Ongoing depression, though this is improving as sleep does but with ongoing anxiety and very limited insight into factors leading to significant self-harm and potential benefits of involving more of his supports. Willing to consider family meeting later in the week. Tolerating trazodone better today without excessive grogginess. Explored additional medication options such as Wellbutrin versus alternative SSRI, he prefers to see how therapy works before adding any additional medications which is reasonable. (1) Depression: (2) Laceration: Plan 12/08/2022: Continue current medication and tx plan. Motivational interviewing and insight-oriented approach regarding factors leading to hospital, ways to make behavioral changes moving forward. 12/07/2022: Continue current medication and tx plan. 12/06/2022: Start trazodone 50mg HS 12/05/2022: The patient was admitted to the [facility] ([facility] mental health unit) on q15 min checks (behavioral with suicide precautions) for safety. The patient will participate in group, recreational, and milieu therapies and will be offered additional individual and family sessions as clinically approp silvano. d/c Lexapro. Risks/benefits/alternatives reviewed re: antidepressants for the treatment of depression, discussion included but was not limited to FDA warnings re: suicidality in adolescents and young adults. Will discuss options in more detail as subjective restlessness resolves. Inventory Assets Strengths: functions independently at baseline, will have family support for summer, works remotely Needs: improve coping, improve insight Suicide Risk Level Suicide Risk Level: High-Moderate (q15 min suicide checks) (SI and cutting prior to admission with but feels safe in the hospital and feels comfortable letting nurses know if he feels unable to remain safe or requires additional support) Risk Factors Assessment Male: Yes : Yes Do You Have Access To A Gun?: No (neither here nor home) Previous Attempt: No Previous Psychiatric Hospitalization: No Protective Factors Assessment Employed: Yes Supportive Family: Yes (brother) Interval History Identifying Information CRISTINA BLAIR is a 22-year-old M, [employer] student and was admitted on 12/05/22 00:14 on a 201 voluntary commitment for SI with self-inflicted laceration. Chief Complaint "It makes me nervous". Review of Systems Sleep Information Total Hours of Sleep: 6 Meal Information Percent Meal Consumed - Breakfast: 100 Percent Meal Consumed - Lunch: 100 Percent Meal Consumed - Dinner: 90 Subjective Subjective Patient was seen & assessed and interval progress reviewed with treatment team nursing and social work. Reported feeling guilty during group last night. Today initially states his mood is good but reverses to express feeling overwhelmed and nervous as we discuss involving his family in safety planning meeting and his potential decisions about school. Reviewed option of possible IOP for additional therapy which he is interested in. Continues to sleep well with trazodone, prefers to avoid any further psych medications until he tries therapy. Denies any significant grogginess today. Physical Exam Psychiatric Orientation: alert and oriented x 3 Apperance: appropriately dressed and appropriately groomed Eye Contact: good eye contact Motor Behavior: no abnormal motor movements Speech: normal rate/rhythm/volume of speech Affect: + constricted affect Mood: + depressed mood and + anxious mood Thought Process: + concrete thought process Thought Content: reality based without delusions Suicidal Thoughts: denies suicidal thoughts, denies suicidal plan and denies suicidal intent Homicidal Thoughts: denies homicidal thoughts Hallucinations: no auditory hallucinations and no visual hallucinations Cognition: attention grossly intact and language grossly intact Estimated Intelligence: consistent with education level Insight: + limited insight Judgment: + limited judgement Vital Signs (Past 24 Hours) Last Vital Signs Temp 36.5 C 12/08/22 06:26 Pulse 85 12/08/22 06:26 Resp 16 12/08/22 06:26 BP 103/68 12/08/22 06:26 Pulse Ox 99 12/07/22 06:00 O2 Del Method Room Air 12/07/22 06:00 Results & Data ([facility]) Current Inpatient Medications Current Inpatient Medications: Current Inpatient Medications Acetaminophen (Acetaminophen 325 Mg Tab) 650 mg PO Q4H PRN PRN Reason: Headache or Minor Fever Stop: 01/04/23 02:33 Al Hydrox/Mg Hydrox/Simethicone (Aluminum/Magnesium Susp 30 Ml Udc) 30 ml PO Q4H PRN PRN Reason: GI Upset Stop: 01/04/23 02:33 Bismuth Subsalicylate (Bismuth Subsalicylate Liqd 236 Ml) 15 ml PO PRN PRN PRN Reason: Loose Stool Stop: 01/04/23 02:33 Hydroxyzine HCl (Hydroxyzine Hcl 25 Mg Tab) 50 mg PO HSZ PRN PRN Reason: Insomnia Stop: 01/04/23 02:33 Hydroxyzine HCl (Hydroxyzine Hcl 25 Mg Tab) 25 mg PO Q4H PRN PRN Reason: Anxiety Stop: 01/04/23 02:33 Magnesium Hydroxide (Magnesium Hydroxide Susp 30 Ml Udc) 30 ml PO DAILY PRN PRN Reason: Constipation Stop: 01/04/23 02:33 Melatonin (Melatonin 3 Mg Tab) 3 mg PO HS PRN PRN Reason: Sleep Stop: 01/04/23 07:54 Nicotine Polacrilex (Nicotine Polacrilex 2 Mg Gum) 1 piece MT PRN PRN PRN Reason: Undecided Stop: 01/04/23 10:34 Sodium Chloride (Sodium Chloride 0.65% Na Soln 45 Ml ([place])) 1 - 2 sprays NA PRN PRN PRN Reason: Nasal Dryness/Congestion Stop: 01/04/23 02:33 Trazodone HCl (Trazodone Hcl 50 Mg Tab) 50 mg PO HS NAI Stop: 01/05/23 21:59 Last Admin: 12/07/22 21:18 Dose: 50 mg Mental Health & Subst Abuse Tx Therapist Name of Therapist: [facility] intake next week Date of Therapist Appointment: na Acrobatic Dancer Name of Acrobatic Dancer: NA Post Discharge Appointments Primary Care Physician Name Of Family Doctor/PCP: [facility] (1) Depression Depression Type: unspecified Qualified Code(s): F32.A - Depression, unspecified
[2022-12-08] MEDS: traZODone HCL 50 MG TAB PO SCH (21:30)
--- NOTE | 2022-12-09 12:22 | Psychiatric Progress Note ---
Date of Service December 09, 2022 Impression / Recommendations Impression 22 yo male with no formal psych history presents with 3 month history of worsening depressive symptoms with escalation in SI and cutting since starting Lexapro 5 mg. Diagnostically seems most consistent with major depressive episode. He is deemed to need psychiatric hospitalization for diagnostic clarification, safety and stabilization, medication management and development of further coping skills. 12/09/2022: Depression improving but some increase in anxiety and irritability today as he thinks about what he will need to do after he leaves the hospital and anticipatory anxiety about seeing and talking to his parents. Tolerating trazodone well. (1) Depression: (2) Laceration: Plan 12/09/2022: Continue current medication and tx plan. Plan for family meeting tomorrow. 12/08/2022: Continue current medication and tx plan. Motivational interviewing and insight-oriented approach regarding factors leading to hospital, ways to make behavioral changes moving forward. 12/07/2022: Continue current medication and tx plan. 12/06/2022: Start trazodone 50mg HS 12/05/2022: The patient was admitted to the [facility] ([facility] mental health unit) on q15 min checks (behavioral with suicide precautions) for safety. The patient will participate in group, recreational, and milieu therapies and will be offered additional individual and family sessions as clinically appropriate. d/c Lexapro. Risks/benefits/alternatives reviewed re: antidepressants for the treatment of depression, discussion included but was not limited to FDA warnings re: suicidality in adolescents and young adults. Will discuss options in more detail as subjective restlessness resolves. Inventory Assets Strengths: functions independently at baseline, will have family support for summer, works remotely Needs: improve coping, improve insight Suicide Risk Level Suicide Risk Level: Moderate (q15 min suicide checks) (SI and cutting prior to admission but mood improving and denies SI and feels safe in the hospital and feels comfortable letting nurses know if he feels unable to remain safe or requires additional support) Risk Factors Assessment Male: Yes : Yes Do You Have Access To A Gun?: No (neither here nor home) Previous Attempt: No Previous Psychiatric Hospitalization: No Protective Factors Assessment Employed: Yes Supportive Family: Yes (brother) Interval History Identifying Information CRISTINA BLAIR is a 22-year-old , [employer] student and was admitted on 12/05/22 00:14 on a 201 voluntary commitment for SI with self-inflicted laceration. Chief Complaint "I have so much I need to get done". Review of Systems Sleep Information Total Hours of Sleep: 6.5 Meal Information Percent Meal Consumed - Breakfast: 95 Percent Meal Consumed - Lunch: 100 Percent Meal Consumed - Dinner: 100 Subjective Subjective Patient was seen & assessed and interval progress reviewed with treatment team nursing and social work. Told his parents he is in the hospital and they are coming up this evening to see him. Reports this makes him feel more overwhelmed as now he has less time after he's discharged to get a lot of stuff done as his parents will want to return home as soon as possible and now they will be "feeling guilty if I ask for space because I did that before and then this happened or hovering which is even worse". Remains quite overwhelmed by prospect of family meeting and discussing self-harm and SI leading to admission with his parents. But feels his mood is overall "good" and denies current SI and denies any self-harm urges. Continues to sleep well. Physical Exam Psychiatric Orientation: alert and oriented x 3 Apperance: appropriately dressed and appropriately groomed Eye Contact: good eye contact Motor Behavior: no abnormal motor movements Speech: normal rate/rhythm/volume of speech Affect: + anxious affect Mood: + anxious mood and + irritable mood Thought Process: + concrete thought process Thought Content: reality based without delusions Suicidal Thoughts: denies suicidal thoughts, denies suicidal plan and denies suicidal intent Homicidal Thoughts: denies homicidal thoughts Hallucinations: no auditory hallucinations and no visual hallucinations Cognition: attention grossly intact and language grossly intact Estimated Intelligence: consistent with education level Insight: + limited insight Judgment: + limited judgement Vital Signs (Past 24 Hours) Last Vital Signs Temp 36.5 C 12/09/22 06:34 Pulse 83 12/09/22 06:35 Resp 16 12/09/22 06:34 BP 92/59 L 12/09/22 06:35 Pulse Ox 99 12/07/22 06:00 O2 Del Method Room Air 12/07/22 06:00 Results & Data ([facility]) Current Inpatient Medications Current Inpatient Medications: Current Inpatient Medications Acetaminophen (Acetaminophen 325 Mg Tab) 650 mg PO Q4H PRN PRN Reason: Headache or Minor Fever Stop: 01/04/23 02:33 Al Hydrox/Mg Hydrox/Simethicone (Aluminum/Magnesium Susp 30 Ml Udc) 30 ml PO Q4H PRN PRN Reason: GI Upset Stop: 01/04/23 02:33 Bismuth Subsalicylate (Bismuth Subsalicylate Liqd 236 Ml) 15 ml PO PRN PRN PRN Reason: Loose Stool Stop: 01/04/23 02:33 Hydroxyzine HCl (Hydroxyzine Hcl 25 Mg Tab) 50 mg PO HSZ PRN PRN Reason: Insomnia Stop: 01/04/23 02:33 Hydroxyzine HCl (Hydroxyzine Hcl 25 Mg Tab) 25 mg PO Q4H PRN PRN Reason: Anxiety Stop: 01/04/23 02:33 Magnesium Hydroxide (Magnesium Hydroxide Susp 30 Ml Udc) 30 ml PO DAILY PRN PRN Reason: Constipation Stop: 01/04/23 02:33 Melatonin (Melatonin 3 Mg Tab) 3 mg PO HS PRN PRN Reason: Sleep Stop: 01/04/23 07:54 Nicotine Polacrilex (Nicotine Polacrilex 2 Mg Gum) 1 piece MT PRN PRN PRN Reason: Undecided Stop: 01/04/23 10:34 Sodium Chloride (Sodium Chloride 0.65% Na Soln 45 Ml ([place])) 1 - 2 sprays NA PRN PRN PRN Reason: Nasal Dryness/Congestion Stop: 01/04/23 02:33 Trazodone HCl (Trazodone Hcl 50 Mg Tab) 50 mg PO HS NAI Stop: 01/05/23 21:59 Last Admin: 12/08/22 21:30 Dose: 50 mg Mental Health & Subst Abuse Tx Psychiatrist Name of Psychiatrist: Monse Reeves Psychiatrist's Time of Appointment with Psychiatrist: *please follow up before returning to [place] to get scheduled* Psychiatric Appointment Comment: [address] [place] [address] Therapist Name of Therapist: Monse Reeves Therapist's Date of Therapist Appointment: . Time of Therapist Appointment: *please follow up before returning to [place] to get scheduled* Therapy Appointment Comment: [address] [place] [address] Program Project Analyst Name of Program Project Analyst: [facility] Phone Number for Program Project Analyst: [phone] Date of Appointment with Program Project Analyst: 12/11/22 Time of Appointment with Program Project Analyst: 2pm Case Management Appointment Comment: Zoom link will be sent to [employer] email Post Discharge Appointments Primary Care Physician Name Of Family Doctor/PCP: [facility] Primary Care Provider Appointment Comment: [facility] Contact Information Discharge Discharge Address: [facility] [address], [place] [address] (1) Depression Depression Type: unspecified Qualified Code(s): F32.A - Depression, unspecified
[2022-12-09] MEDS: traZODone HCL 50 MG TAB PO SCH (21:31)
--- NOTE | 2022-12-10 11:14 | Discharge Summary ---
Date of Service December 10, 2022 History of Present Illness Patient reports onset of depressive symptoms in August. He stopped going to class and responding to texts from other people. He couldn't concentrate as well and lost motivation. He "waited too long I guess" to seek treatment as now in danger of failing some classes in [employer]. He lives alone so there is no one around to encourage him to go out or care for self but was quick to add that that does not imply that he doesn't have friends. He was started on Lexapro 5 mg 1 week ago and has felt generally worse--tapping his leg/foot up and down, not sleeping or eating as well. Although he had made some superficial cuts last week, yesterday he cut his right arm requiring 5 sutures (removal in 2 weeks). He does plan to go to the [facility] for the [facility] but is ambivalent about sharing the news of his hospitalization with his parents as doesn't want them to feel responsible but "I also want to stop lying." By lying he means referring to his mood as good when it is not. Physical Exam Vital Signs (Past 24 Hours) Last Vital Signs Temp 36.6 C 12/10/22 06:48 Pulse 62 12/10/22 06:50 Resp 16 12/10/22 06:48 BP 104/65 12/10/22 06:50 Pulse Ox 99 12/07/22 06:00 O2 Del Method Room Air 12/07/22 06:00 See admission H&P and DOD summary. Principal Diagnosis Major Depressive Disorder Psychiatric Data See daily stay summary. In short, patient was engaged with the social/therapeutic milieu of the unit, safety was maintained and the patient was cooperative with care. Medication changes included discontinuation of escitalopram and initiation of trazodone 50mg HS for insomnia and depression and they tolerated this well. He will need to have his sutures removed around approximately December 19. A family session was held and safety plan was completed prior to discharge. He participated in safety planning and in discussions about ways to seek support and recognizing warning signs and utilizing coping skills. Reviewed mobile apps that could be used for additional ways to have their safety plan and contacts easily available should thoughts of SI re-emerge in the future. Reviewed importance of seeking emergency care should SI intensify, worsen or should they feel unsafe in the future which they agree to do. On the day of discharge he stated his mood was "hopeful, looking forward to getting out" and remained future-oriented including seeing his parents, getting things done around his apartment, paying his rent via a check to the office and engaging in aftercare appointments for [facility] and [facility] student care and advocacy. Day of Discharge Assessment Today the patient voices readiness for discharge. They note improvement in mood and anxiety. They deny thoughts of harm to self or others. Thoughts are org anized and they are clinically improved from admission. There is no evidence of psychosis. They improved in the hospital with support and medication adjustments. They agree to take medications as prescribed and keep follow-up appointments. At the time of the discharge they are deemed to be stable and appropriate for outpatient level of care. They are not deemed to be at imminent risk of harm to self or others. They are aware of emergency and crisis services. Knows to call 911 or go to nearest emergency care center if in a crisis which cannot be handled as an outpatient. Transition of Care Transition Of Care Record: was reviewed with the patient Advance Directives Advance Directives Information Provided: Yes Advance Directives: No Mental Health Advance Directive: No Advance Directives on File: No Living Will: No Power of Daytime Caregiver: No Advance Directives Reason:: Declines as Mental Health Visit. Suicide Risk Level Suicide Risk Level Comments: Acute risk is low given improvement in mood and denial of SI, lack of access to lethal means, plan to reduce or avoid substance use, improvement in sleep, hopefulness. Chronic risk is moderate given some non-modifiable risk factors: periods of impulsivity, hx self-harm, emotional reactivity but also with protective factors including: employed/student, good social support, sense of responsibility to family and social supports, outpatient care in place, positive coping skills, capacity to establish therapeutic alliance, willingness to engage with treatment, capacity for self-observation. Counseled on ways to reduce acute and chronic risk including engaging with outpatient providers, using safety plan if needed, utilizing supports, taking medication, and using coping skills. Modifiable risk factors of SI and depression were addressed during hospitalization through development of new coping skills, family meeting, safety planning, and medication adjustments. Risk Factors Assessment Male: Yes : Yes Do You Have Access To A Gun?: No (neither here nor home) Health Problems: No Mental Health Diagnoses: Yes Previous Attempt: No Family History of Suicide: No Previous Psychiatric Hospitalization: No Hopelessness: No Protective Factors Assessment Employed: Yes Stable Relationships: Yes Supportive Family: Yes (brother, parents) Discharge Data Lab Results 12/04/22 12/04/22 12/04/22 21:30 21:30 21:30 WBC 7.46 RBC 5.09 Hgb 15.9 Hct 43.2 MCV 84.9 MCH 31.2 MCHC 36.8 H RDW Std Deviation 38.0 RDW Coeff of Rishi 12.4 Plt Count 342 MPV 9.5 Immature Gran % (Auto) 0.8 Neut % (Auto) 63.3 Lymph % (Auto) 23.5 [place] % (Auto) 9.2 Eos % (Auto) 2.1 Baso % (Auto) 1.1 Neut # (Auto) 4.72 Lymph # (Auto) 1.75 [place] # (Auto) 0.69 H Eos # (Auto) 0.16 Baso # (Auto) 0.08 Immature Gran # (Auto) 0.06 Sodium 139 Potassium 3.7 Chloride 104 Carbon Dioxide 25 Anion Gap 10 BUN 17 Creatinine 0.97 Est Cr Clr Drug Dosing 123.7 Est GFR ( Amer) 127.9 Est GFR (Non-Af Amer) 110.4 BUN/Creatinine Ratio 17.5 Glucose 92 Calcium 9.3 Total Bilirubin 0.8 AST 36 ALT 64 H Alkaline Phosphatase 62 Total Protein 7.6 Albumin 4.8 Globulin 2.8 Albumin/Globulin Ratio 1.7 TSH 1.745 Urine Color Urine Appearance Urine pH Ur Specific [place] Urine Protein Urine Glucose (UA) Urine Ketones Urine Blood Urine Nitrite Urine Bilirubin Urine Urobilinogen Ur Leukocyte Esterase Salicylates Urine Opiates Screen Ur Methadone, Qual Acetaminophen Urine Barbiturates Ur Phencyclidine (PCP) U Amphetamin/Meth Scrn MDMA (Ecstasy) Screen U Benzodiazepines Scrn Ur Cocaine Metabolite U Marijuana (THC) Screen Ethyl Alcohol mg/dL SARS-CoV-2, RNA, NAAT 12/04/22 12/04/22 12/04/22 21:30 21:30 21:45 WBC RBC Hgb Hct MCV MCH MCHC RDW Std Deviation RDW Coeff of Rishi Plt Count MPV Immature Gran % (Auto) Neut % (Auto) Lymph % (Auto) [place] % (Auto) Eos % (Auto) Baso % (Auto) Neut # (Auto) Lymph # (Auto) [place] # (Auto) Eos # (Auto) Baso # (Auto) Immature Gran # (Auto) Sodium Potassium Chloride Carbon Dioxide Anion Gap BUN Creatinine Est Cr Clr Drug Dosing Est GFR ( Amer) Est GFR (Non-Af Amer) BUN/Creatinine Ratio Glucose Calcium Total Bilirubin AST ALT Alkaline Phosphatase Total Protein Albumin Globulin Albumin/Globulin Ratio TSH Urine Color Urine Appearance Urine pH Ur Specific [place] Urine Protein Urine Glucose (UA) Urine Ketones Urine Blood Urine Nitrite Urine Bilirubin Urine Urobilinogen Ur Leukocyte Esterase Salicylates < 3.0 L Urine Opiates Screen Ur Methadone, Qual Acetaminophen < 3 L Urine Barbiturates Ur Phencyclidine (PCP) U Amphetamin/Meth Scrn MDMA (Ecstasy) Screen U Benzodiazepines Scrn Ur Cocaine Metabolite U Marijuana (THC) Screen Ethyl Alcohol mg/dL < 10.0 SARS-CoV-2, RNA, NAAT NEGATIVE 12/04/22 12/04/22 Unknown Unknown WBC RBC Hgb Hct MCV MCH MCHC RDW Std Deviation RDW Coeff of Rishi Plt Count MPV Immature Gran % (Auto) Neut % (Auto) Lymph % (Auto) [place] % (Auto) Eos % (Auto) Baso % (Auto) Neut # (Auto) Lymph # (Auto) [place] # (Auto) Eos # (Auto) Baso # (Auto) Immature Gran # (Auto) Sodium Potassium Chloride Carbon Dioxide Anion Gap BUN Creatinine Est Cr Clr Drug Dosing Est GFR ( Amer) Est GFR (Non-Af Amer) BUN/Creatinine Ratio Glucose Calcium Total Bilirubin AST ALT Alkaline Phosphatase Total Protein Albumin Globulin Albumin/Globulin Ratio TSH Urine Color Yellow Urine Appearance Clear Urine pH 7.0 Ur Specific [place] 1.022 Urine Protein Negative Urine Glucose (UA) Negative Urine Ketones Negative Urine Blood Negative Urine Nitrite Negative Urine Bilirubin Negative Urine Urobilinogen Negative Ur Leukocyte Esterase Negative Salicylates Urine Opiates Screen Neg Ur Methadone, Qual Neg Acetaminophen Urine Barbiturates Neg Ur Phencyclidine (PCP) Neg U Amphetamin/Meth Scrn Neg MDMA (Ecstasy) Screen Neg U Benzodiazepines Scrn Neg Ur Cocaine Metabolite Neg U Marijuana (THC) Screen Neg Ethyl Alcohol mg/dL SARS-CoV-2, RNA, NAAT Hospital Course (1) Depression: (2) Laceration: (3) Major depressive disorder with current active episode: Plan 12/09/2022: Continue current medication and tx plan. Plan for family meeting tomorrow. 12/08/2022: Continue current medication and tx plan. Motivational interviewing and insight-oriented approach regarding factors leading to hospital, ways to make behavioral changes moving forward. 12/07/2022: Continue current medication and tx plan. 12/06/2022: Start trazodone 50mg HS 12/05/2022: The patient was admitted to the [facility] ([facility] inpatient mental health unit) on q15 min checks (behavioral with suicide precautions) for safety. The patient will participate in group, recreational, and milieu therapies and will be offered additional individual and family sessions as clinically appropriate. d/c Lexapro. Risks/benefits/alternatives reviewed re: antidepressants for the treatment of depression, discussion included but was not limited to FDA warnings re: suicidality in adolescents and young adults. Will discuss options in more detail as subjective restlessness resolves. Mental Health & Subst Abuse Tx Psychiatrist Name of Psychiatrist: Monse Reeves Psychiatrist's Time of Appointment with Psychiatrist: *please follow up before returning to [place] to get scheduled* Psychiatric Appointment Comment: [address] [place] [address] Therapist Name of Therapist: [facility] Therapist's Date of Therapist Appointment: . Time of Therapist Appointment: *please follow up before returning to [place] to get scheduled* Therapy Appointment Comment: [address] [place] [address] Licensed Real Estate Broker Name of Licensed Real Estate Broker: Student Reggie and Michael Zapata Phone Number for Licensed Real Estate Broker: [phone] Date of Appointment with Licensed Real Estate Broker: 12/11/22 Time of Appointment with Licensed Real Estate Broker: 2pm Case Management Appointment Comment: Zoom link will be sent to [employer] email Post Discharge Appointments Primary Care Physician Name Of Family Doctor/PCP: [facility] Primary Care Provider Appointment Comment: [facility] [place] Other #2: Name of Aftercare Appointment: [facility] (intake for therapy and medication management) Phone Number of Aftercare Appointment: Date of Aftercare Appointment: 12/12/22 Time of Aftercare Appointment: 12pm Aftercare Appointment Comment: Zoom link will be sent to [email or web address] Contact Information Discharge Discharge Address: [address], [address], [place] [address] Discharge Plan Discharge Items Patient Disposition: Home - Self-Care Reason For Visit: MAJOR DEPRESSIVE DISORDER Discharge Diagnosis: Major Depressive Disorder Activity: Resume your previous activity Non-emergency contact: Primary Care Provider, Psychiatrist and Therapist Call non-emergency contact if: you have any medication questions and your symptoms worsen Follow-up/Referrals: [facility] [Primary Care Provider] - Diet: Regular Addtl Attending Provider Instructions: Optional mobile apps we discussed: -Suicide safety plan -Virtual Hope Box SPECIAL CARE INSTRUCTIONS: 1. Follow through with your scheduled aftercare appointments. If unable to keep an appointment, please call to reschedule. 2. Take your medication only as prescribed. Medication should not be changed or stopped without the approval of your doctor. In the event of worsening symptoms or concerns about side effects, contact your doctor immediately. 3. Utilize new healthy coping skills, anger management skills, and stress management skills learned during your hospitalization. Journal feelings and process them with a support person. Identify stressors or situations that may result in relapse, deterioration or inappropriate behaviors and develop a plan to deal with those issues. 4. If your coping skills are ineffective and you are in crisis, contact your o utpatient providers for direction. If unable to reach your providers, please call the [facility] CRISIS LINE AT , go to the [facility] walk-in center at [address], [address], [place], or go to the closest Emergency Room. 5. Avoid alcohol and un-prescribed drugs. 6. You have been provided with the Mental Health Advance Directives Pamphlet for your review. 7. Your condition is stable for discharge to outpatient level of care, but recovery is an ongoing process. Ifthoughts to harm yourself or others return, follow the safety plan developed during your stay. Planning for a safe return home includes securing weapons. Our treatment team recommends weaponsbe removed from the home until your outpatient provider reassesses your progress. In rare cases where the items themselvescannot be removed, guns and ammunitionshould be secured separatelyand keys stored by a reliable personoutside of the home. If you were admitted on an involuntary commitment, the police or other legal authorities may be involved in this process. AFTERCARE APPOINTMENTS: * Please call your insurance company prior to your scheduled appointment to confirm your aftercare providers are covered. Take your insurance information to your appointments. WHO TO CALL AND WHEN: Medical Emergencies: For questions or emergencies related to your hospital stay, please contact the Inpatient Behavioral Health Unit at [phone]. A estimator and drafter is on-call 02/03 for the Behavioral Health Unit for emergencies National Suicide and Crisis Hotline: 188 At any time you feel your situation is an emergency, you may also call 911 immediately. Pending Studies at Discharge: No Stand-Alone Forms: [facility] Medications and DC Order Prescriptions: New trazodone 50 mg Tablet 50 mg PO HS 30 Days Qty: 30 0RF Continued melatonin 3 mg Tablet 3 mg PO HS PRN (Reason: Sleep) Rx Instructions: PT UNSURE OF STRENGTH Discontinued escitalopram oxalate 10 mg tablet 10 mg PO DAILY Discharge Orders: Discharge Order (Routine); Ordered 12/10/22 Ordered By: Trinidad Osuna Admission Data Admit Date/Time: 12/05/22 00:14 Attending Provider: Trinidad Osuna Admit Provider: Millie Betancur Primary Care Provider: [facility] Other Interventions: Discharge Summary Assessment (RN) Last Done: 12/10/22 11:33 PSY Interdisciplinary Discharge Planning Last Done: 12/10/22 11:36 Coding Level of Care Code 53162 D/C day mgmt > 30 min Diagnoses Depression F32.A Depression Type: unspecified Laceration Major depressive disorder with current active episode F32.9 Time Spent (min) 45
== END 2022-12-10 12:03 | disposition home or self-care (01) | DRG 881 ==
LOC: ED 21:08 → 3S 12-05 00:14 → SUATTDRO 12-05 00:14 → 3S 12-05 00:40